=== PATIENT | female | born 1950 | race Two or more races ===

== ENCOUNTER → 2017-06-15 | Outpatient (CLI) | payer OTHER, MEDICARE | LOC: CIMAGING 08:43 | PROVIDERS: ATTEND Family Medicine | DX: Z12.31 Encounter for screening mammogram for malignant neoplasm of breast (principal) | CPT/HCPCS: G0202 ==

== ENCOUNTER → 2018-07-18 | Outpatient (CLI) | payer OTHER, MEDICARE | LOC: CIMAGING 08:19 | PROVIDERS: ATTEND Family Medicine | DX: Z12.31 Encounter for screening mammogram for malignant neoplasm of breast (principal) ==